=== PATIENT | female | born 1955 | race Caucasian/White ===

== ENCOUNTER 2016-09-02 09:39 | Day surgery (SDC) | payer BC ==
[2016-08-30 15:47] VITALS: BMI 18.8
[~2016-09-02 09:39] MED LIST: LACTATED RINGERS 1,000 ML IV SCH
[2016-09-02 10:25] VITALS: RESP 16; TEMP 98
[2016-09-02] MEDS ORDERED: LIDOCAINE 1% 20 ML VIAL (10MG/ML) FOR IV START INTRADERMA ONE (10:31)
[2016-09-02] MEDS ORDERED: PROPOFOL 10 MG/ML 20 ML VIAL IV ONE (11:22)
[2016-09-02] MEDS ORDERED: LIDOCAINE 1% INJ 10MG/ML (20 ML MDV) ONE (11:22)
--- NOTE | 2016-09-02 11:55 | P.PCN ---
Date of Procedure: 09/02/16 Procedure(s) Performed: BRIEF HISTORY: Patient is a 60-year-old pleasant white female, scheduled for an elective colonoscopy as a part of evaluation of Hemoccult-positive stool. PROCEDURE PERFORMED: Colonoscopy with snare polypectomy. PREOPERATIVE DIAGNOSIS: Hemoccult-positive stool. IV sedation per Anesthesia. PROCEDURE: After informed consent was obtained, the patient, was brought into the endoscopy unit. IV conscious sedation was administered by Anesthesia under continuous monitoring. Initially the Olympus CF-160 flexible video colonoscope was then inserted in the rectum, gradually advanced into the cecum without any difficulty. Careful examination was performed as the scope was gradually being withdrawn. Ileocecal valve and the appendiceal orifice were visualized and appeared normal. Prep was excellent. The base of the cecum there was a 1 and the polyp removed by snare polypectomy. In the transverse colon there was another 1 cm polyp removed by snare polypectomy. Mucosa of the cecum, ascending colon, transverse colon, descending colon, sigmoid colon, and rectum appeared normal. In the proximal rectum there was a 1 cm polyp removed by snare polypectomy. Retroflexion was performed in the rectum and no lesions were seen. The patient tolerated the procedure well. IMPRESSION: 1 cm cecal polyp status post polypectomy 1 cm transverse colon polyps with post-polypectomy 1 cm rectal polyp status post polypectomy RECOMMENDATIONS: Findings of this examination were discussed with the patient as well as a family. She was advised to follow with the biopsy results. If the biopsy shows a tubular adenoma she can have a repeat colonoscopy in 3 years.
[2016-09-02 12:21] VITALS: BP 129/86; PULSE 73
== END 2016-09-02 12:31 | disposition home or self-care (01) ==
LOC: ORWHC2ENDO 09:39
PROVIDERS: ATTEND Internal Medicine Gastroenterology
DX: D12.0 Benign neoplasm of cecum (principal); D12.3 Benign neoplasm of transverse colon; K62.1 Rectal polyp; K58.9 Irritable bowel syndrome, unspecified; M54.9 Dorsalgia, unspecified; F17.200 Nicotine dependence, unspecified, uncomplicated; Z79.82 Long term (current) use of aspirin; Z79.899 Other long term (current) drug therapy
CPT/HCPCS: 88305; 45385; J2001; J2704; 99153

== ENCOUNTER → 2017-02-10 | Outpatient (CLI) | payer BC ==
--- NOTE | 2017-02-15 08:20 | MM ---
Reason for exam: screening (asymptomatic). Last mammogram was performed 1 year and 10 months ago. History: Excisional biopsy of both breasts, February 19, 2007. Cyst aspiration of the left breast, 2004. Cyst aspiration of the right breast. Physical Findings: A clinical breast exam by your physician is recommended on an annual basis and results should be correlated with mammographic findings. MG Screening Mammo w CAD Bilateral CC and MLO view(s) were taken. Prior study comparison: April 24, 2015, bilateral MG screening mammo w CAD. There are scattered fibroglandular densities. No significant changes when compared with prior studies. ASSESSMENT: Benign, BI-RAD 2 RECOMMENDATION: Routine screening mammogram of both breasts in 1 year.
== END | disposition home or self-care (01) ==
LOC: RADMAMWWP 10:50
PROVIDERS: ATTEND Internal Medicine
DX: Z12.31 Encounter for screening mammogram for malignant neoplasm of breast (principal)

== ENCOUNTER 2019-06-01 09:55 | Emergency (ER) | payer BC ==
--- NOTE | 2019-06-01 10:44 | ED ---
Dizziness HPI - General Chief Complaint: Dizziness Stated Complaint: Dizziness Time Seen by Provider: 06/01/19 10:12 Source: patient Mode of arrival: wheelchair Limitations: no limitations - History of Present Illness Initial Comments: Patient is a 63-year-old female presenting to emergency Department chief complaint of dizziness. Patient reports about 5 days ago she developed brief episode of dizziness after she was turning from the left side to the right side while she was laying in bed. Patient reports that she slowly got out of bed and attempted to walk the dizziness disappeared. Patient states that the room was spinning around her. Patient reports over the next several days she's also developed similar episodes although they were less severe. Patient denies recent episodes of URI or otitis media. Patient states that he was evaluated by an ENT and diagnosed with cholesteatoma which she is scheduled to undergo surgery in August. Patient reports that she has bilateral ruptured tympanic membranes. 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 Patient denies nausea or vomiting at this time. Patient denies any headaches, blurry vision, light headedness, chest pain, shortness of breath.Patient denies otalgia, tinnitus or any ear drainage. - Related Data Home Medications Medication Instructions Recorded Confirmed ALPRAZolam [Xanax] 0.25 mg PO HS PRN 08/30/16 06/01/19 Aspirin EC [Ecotrin] 325 mg PO DAILY 06/01/19 06/01/19 Allergies Allergy/AdvReac Type Severity Reaction Status Date / Time Penicillins Allergy Unknown Verified 06/01/19 10:37 Childhood Review of Systems ROS Statement: Those systems with pertinent positive or pertinent negative responses have been documented in the HPI. ROS Other: All systems not noted in ROS Statement are negative. Past Medical History Additional Past Medical History / Comment(s): ENVIRONMENTAL ALLERGIES, HX OF CLEFT PALATTE, LOW BACK ARTHRITIS PAIN, EPISODES OF "IRRITABLE BOWEL" WITH DIARRHEA, STATES BLOOD IN STOOL., STATES SHE HAD A RASH ON BUTTOCKS 3 WEEKS AGO- DR THOUGHT IT WAS SHINGLES- CLEARED UP NOW. History of Any Multi-Drug Resistant Organisms: None Reported Additional Past Surgical History / Comment(s): CLEFT PALATTE A CHILD, CYST ON FOOT REMOVED, TUBES IN EARS (CHILD), LEFT CATARACT. Past Anesthesia/Blood Transfusion Reactions: Postoperative Nausea & Vomiting (PONV) Past Psychological History: Anxiety Smoking Status: Current every day smoker Past Alcohol Use History: Daily Past Drug Use History: None Reported - Past Family History Father Family Medical History: Cancer Additional Family Medical History / Comment(s): LUNG CA Mother Family Medical History: Pulmonary Embolus Sister(s) Family Medical History: Cancer Additional Family Medical History / Comment(s): PANCREATIC CA General Exam Limitations: no limitations General appearance: alert, in no apparent distress Head exam: Present: normocephalic, normal inspection. Absent: atraumatic (Very small abrasion in the occipital region of the head.) Eye exam: Present: normal appearance, PERRL, EOMI. Absent: nystagmus Pupils: Present: normal accommodation ENT exam: Present: normal exam, normal oropharynx, mucous membranes moist, TM's normal bilaterally, normal external ear exam Neck exam: Present: normal inspection, full ROM. Absent: tenderness, lymphadenopathy Respiratory exam: Present: normal lung sounds bilaterally Cardiovascular Exam: Present: regular rate, normal rhythm, normal heart sounds Extremities exam: Present: normal inspection, full ROM Back exam: Present: normal inspection, full ROM Neurological exam: Present: alert, oriented X3, CN II-XII intact, normal gait, reflexes normal, other (Neuro exam unremarkable.). Absent: motor sensory deficit Psychiatric exam: Present: normal affect, normal mood Skin exam: Present: warm, intact, normal color Course Vital Signs 06/01/19 06/01/19 10:00 11:01 Temperature 97.7 F 98.4 F Pulse Rate 81 91 Respiratory 16 20 Rate Blood Pressure 136/91 121/81 O2 Sat by Pulse 97 96 Oximetry EKG Findings - EKG Comments: EKG Findings:: Normal sinus rhythm, no ST elevations. Ventricular rate 100, AZ interval 146, QRS duration 74, QT/QTC 332/428 Medical Decision Making - Medical Decision Making Patient is a 63-year-old female presenting to emergency Department with a chief complaint of dizziness. patient has had a single episode of dizziness where the room was spinning around her about 4 days ago as she was turning her head from left to right side while laying supine. This was a very brief episode which appeared to resolve that she stood up and attempted to walk around. Patient doesn't have any nausea or vomiting. No preceding URI or otitis media infections. Patient has seen an ENT specialist and is diagnosed with cholesteatoma. Patient is scheduled to undergo surgery in August. Physical examination patient does have bilateral perforated tympanic membranes although she was aware of that. Patient denies otalgia, tinnitus or any ear drainage. D ix-hallpike maneuver positive. No nystagmus noted. Based on these observations I suspect the patient to have BPPV. CT of the brain is unremarkable. Patient has a follow-up scheduled with ENT. Strict return parameters were thoroughly discussed with patient was understanding and agreeable. Patient given meclizine. Case discussed physician. Disposition Clinical Impression: BPPV (benign paroxysmal positional vertigo) Disposition: HOME SELF-CARE Condition: Stable Instructions (If sedation given, give patient instructions): Dizziness (ED) Additional Instructions: Please take prescribed medication as directed. Please follow with ENT. Please return to emergency department if symptoms worsen. Is patient prescribed a controlled substance at d/c from ED?: No Referrals: Bill Argueta MD [Primary Care Provider] - 1-2 days Time of Disposition: 11:33
--- NOTE | 2019-06-01 10:55 | CT ---
EXAMINATION TYPE: CT brain wo con DATE OF EXAM: 06/01/2019 COMPARISON: NONE HISTORY: Hit back of head dizziness CT DLP: 1036.4 mGycm Automated exposure control for dose reduction was used. FINDINGS: There are generalized changes of sulcal prominence and ventriculomegaly, compatible with atrophic brunilda nge. There is diffuse periventricular white matter lucency, compatible with chronic white matter isch emic change. There is no acute focal lesion, mass effect or midline shift identified. I do not see ev idence of intracranial blood. Visualized portions of the paranasal sinuses and mastoids are clear. The bony calvarium is intact. IMPRESSION: 1. NO ACUTE INTRACRANIAL ABNORMALITY. 2. MILD DEGENERATIVE CHANGE.
[2019-06-01 11:23] VITALS: BP 121/81; PULSE 91; RESP 20; TEMP 98.4
== END 2019-06-01 11:53 | disposition home or self-care (01) ==
LOC: EC 09:55
DX: H81.10 Benign paroxysmal vertigo, unspecified ear (principal); S00.01XA Abrasion of scalp, initial encounter; H72.93 Unspecified perforation of tympanic membrane, bilateral; H71.90 Unspecified cholesteatoma, unspecified ear; M47.816 Spondylosis without myelopathy or radiculopathy, lumbar region; F17.200 Nicotine dependence, unspecified, uncomplicated; Z88.0 Allergy status to penicillin; Z79.82 Long term (current) use of aspirin; Z87.730 Personal history of (corrected) cleft lip and palate; Z96.20 Presence of otological and audiological implant, unspecified; W22.09XA Striking against other stationary object, initial encounter; Y93.89 Activity, other specified
CPT/HCPCS: 70450; 93005; 99284